=== PATIENT | female | born 1940 | race Native Hawaiian/Other Pacific Islander ===

== ENCOUNTER 2016-12-20 11:20 | Inpatient (IN) | payer MEDICARE, OTHER ==
[2016-12-20 11:36] VITALS: BMI 23.6
--- NOTE | 2016-12-20 12:15 | C.PDOC ---
History Of Present Illness 76 year old female, whose PMHx includes Peptic Ulcer Disease with GI bleeding, Atrial Fibrillation not on warfarin, HTN and Chronic Kidney Disease (stage 3) presents to the ED for evaluation after she noted black stool while having a bowel movement this morning. Patient also reports that she has been experiencing intermittent episodes of epigastric pain for the past 5 days. States has had endoscopy 3 times before. Patient reports she underwent cardiac catheterization in 2015 and a stress test which was within normal limits. She denies fever, chills, chest pain, shortness of breath, lightheadedness at this time. Patient states she is visiting her son for months from [place] and does not have a PMD in [place]. Time Seen by Provider: 12/20/16 11:52 Chief Complaint (Nursing): GI Problem History Per: Patient History/Exam Limitations: no limitations Onset/Duration Of Symptoms: Hrs, Intermittent Episodes Current Symptoms Are (Timing): Still Present Number Of Bleeding Episodes: One Quality Of Discomfort: "Pain" Associated Symptoms: Melena. denies: Lightheadedness Additional History Per: Patient Past Medical History Reviewed: Historical Data, Nursing Documentation, Vital Signs Vital Signs: Last Vital Signs Temp 97.7 F 12/20/16 11:36 Pulse 87 12/20/16 11:36 Resp 18 12/20/16 11:36 BP 155/91 H 12/20/16 11:36 Pulse Ox 97 12/20/16 13:24 - Medical History PMH: Arthritis, Atrial Fibrillation (on herbal med), Gastrointestinal Ulcer ( peptic ulcer), HTN Surgical History: Endoscopy Family History: States: Unknown Family Hx - Social History Hx Alcohol Use: No Hx Substance Use: No - Immunization History Hx Tetanus Toxoid Vaccination: No Hx Influenza Vaccination: Yes Hx Pneumococcal Vaccination: Yes Review Of Systems Except As Marked, All Systems Reviewed And Found Negative. Constitutional: Negative for: Fever Cardiovascular: Negative for: Chest Pain Physical Exam - Physical Exam Additional Physical Exam Comments: Constitutional: No acute distress. Head: Normocephalic. Atraumatic. Eyes: PERRL. ENT: Moist mucous membranes. Neck: Supple. Cardiovascular: Regular rate. Irregular Rhythm. Radial pulse 2+ bilaterally. Chest: No tenderness. Respiratory: Clear to auscultation bilaterally. GI: Soft. Nontender. Nondistended. Rectal: No mass. No hemorrhoids. Melena noted. Back: No CVA tenderness. Musculoskeletal: Mild pitting edema to bilateral lower extremities. No tenderness. Capillary refill is less than 2 seconds. Skin: No rash. Neurologic: Alert, no focal deficit. ED Course And Treatment - Laboratory Results Result Diagrams: 12/20/16 12:40 12/20/16 12:40 O2 Sat by Pulse Oximetry: 97 (on RA) Pulse Ox Interpretation: Normal Medical Decision Making Medical Decision Making: Impression: 76y/o female c/o black stool Plan: * Bloodwork * UA * EKG * CXR * Protonix IVP * reassess and disposition Progress: Bloodwork, urinalysis, EKG, CXR ordered and reviewed. Protonix IVP administered. Elderly patient with melena, elevated BUN. Will admit to hospitalist service for further evaluation and treatment. Dr. Randle accepts. Disposition Discussed With Dr.: Michael Randle Doctor Will See Patient In The: Hospital - Disposition Disposition: HOSPITALIZED Disposition Time: 13:26 Condition: FAIR Forms: [facility] (Portuguese) - Clinical Impression Clinical Impression: Upper GI bleed - Scribe Statement The provider has reviewed the documentation as recorded by the Scribe (Jessica Randle) Provider Attestation: All medical record entries made by the Scribe were at my direction and personally dictated by me. I have reviewed the chart and agree that the record accurately reflects my personal performance of the history, physical exam, medical decision making, and the department course for this patient. I have also personally directed, reviewed, and agree with the discharge instructions and disposition.
[2016-12-20 12:44] LABS: BASO # 0.1 K/uL (0.0-0.2); BASO % 0.9 % (0.0-2.0); EOS # 0.3 K/uL (0.0-0.7); EOS % 4.6 % (0.0-4.0); HEMATOCRIT 39.9 % (34.0-47.0); LYMPH # 1.2 K/uL (1.0-4.3); LYMPH % 21.4 % (20.0-40.0); MEAN CELL VOLUME 94.6 fL (81.0-99.0); MEAN CORPUSCULAR HEMOGLOBIN 32.5 pg (27.0-31.0); MEAN CORPUSCULAR HGB CONC 34.3 g/dL (33.0-37.0); MEAN PLATELET VOLUME 10.5 fL (7.2-11.7); MONO # 0.7 K/uL (0.0-0.8); MONO % 12.6 % (0.0-10.0); NRBC % 0.2 % (0.0-2.0); WHITE BLOOD COUNT 5.6 K/uL (4.8-10.8)
[2016-12-20] MEDS ORDERED: Sodium Chloride 0.9% 50 ML IV ONE (12:52)
[2016-12-20 12:53] LABS: CHLORIDE 102 mmol/L (98-107); SODIUM 137 mmol/L (132-148)
[2016-12-20 12:54] LABS: RBC URINE 1 /hpf (0-3); URINE BILIRUBIN NEGATIVE (NEGATIVE); URINE BLOOD NEGATIVE (NEGATIVE); URINE COLOR Yellow (YELLOW); URINE GLUCOSE (UA) NORMAL (Normal); URINE KETONE NEGATIVE (NEGATIVE); URINE LEUKOCYTE ESTERASE NEG Leu/uL (Negative); URINE PROTEIN NEGATIVE (NEGATIVE); URINE UROBILINOGEN NORMAL mg/dL (0.2-1.0); WBC URINE 1 /hpf (0-5)
[2016-12-20 12:55] LABS: ALB/GLOB RATIO 1.4 (1.0-2.1); ALKALINE PHOSPHATASE 62 U/L (38-126); AST/SGOT 32 U/L (14-36); BILIRUBIN,TOTAL 0.8 mg/dL (0.2-1.3); CARBON DIOXIDE 26 mmol/L (22-30); GFR AFRICAN-AMERICAN > 60; TOTAL PROTEIN 7.1 g/dL (6.3-8.3)
[2016-12-20 12:56] LABS: ALT/SGPT 35 U/L (9-52); BLOOD UREA NITROGEN 26 mg/dL (7-17); CALCIUM 9.6 mg/dl (8.6-10.4); GLUCOSE,RANDOM 81 mg/dL (65-105)
--- NOTE | 2016-12-20 14:31 | RAD ---
HISTORY: GI bleed COMPARISON: No prior. FINDINGS: LUNGS: Poor inspiration with low lung volumes, crowded bronchovascular markings and mild bibasilar atelectasis. PLEURA: No significant pleural effusion identified, no pneumothorax apparent. CARDIOVASCULAR: Heart is borderline/mildly enlarged. OSSEOUS STRUCTURES: No significant abnormalities. VISUALIZED UPPER ABDOMEN: Normal. OTHER FINDINGS: None. IMPRESSION: Poor inspiration with low lung volumes, crowded bronchovascular markings and mild bibasilar atelectasis.
--- NOTE | 2016-12-20 15:31 | CP.PCM.HP ---
History of Present Illness - History of Present Illness History of Present Illness: CC: "black stool" 76 year old female with PMHx of CHF, HTN, PUD with bleeds, A. fib, pulmonary HTN , CKD, overactive bladder presents to the ED after one episode of black stool this AM. She lives in [place] and is here visiting her son. Patient reports she has had some mild, intermittent abdominal pain over the past 3 days. Pain was associated with spicy foods. She was having yellow non bloody stools until this AM when she had a black BM. Patient admits to history of CHF. States she cannot lie flat and that she has JOSEPH at baseline. She sees logistics solution manager Dr. Tuttle when she is here in [place]. She has history of bleeding ulcer in 2012. She has had multiple EGDs, some in [place], another in [facility]. Last EGD was done in [facility] in 2014 and showed an ulcer. For this reason patient has refused to be on anticoagulation for her A.Fib. Patient also used to take PPI, but states she stopped because it gave her CKD. Patient admits to overactive bladder, but does not take Myrbetriq prescribed long ago due to worsening of HTN. She admits to feeling fatigued. Denies chest pain, SOB, fevers, chills, nausea, vomiting, headache. Admits to occasional dizziness when she gets up too fast. PMHx: CHF, Pulmonary HTN, PUD with bleeds, A. fib, CKD, overactive bladder. Medications: Lasix 20 mg PO daily, Atenelol 25 mg PO daily, Pravastatin 40 mg PO daily, supplements (turmeric, garlic, Co-Q 10, [place]) Allergies: NKDA Surgeries: cataract, TKR (left), right index surgery, left toe bunion Social Hx: denies tobacco, alcohol, drug use. PMD: in [place] Cardio: Dr. Tuttle. Present on Admission - Present on Admission Any Indicators Present on Admission: No Review of Systems - Constitutional Constitutional: absent: Chills, Fatigue, Fever - EENT Eyes: absent: Blurred Vision, Change in Vision - Cardiovascular Cardiovascular: absent: Chest Pain, Dyspnea, Leg Edema, Palpitations - Respiratory Respiratory: absent: Cough, Dyspnea - Gastrointestinal Gastrointestinal: Abdominal Pain, Melena. absent: Bloating, Constipation, Cramping, Diarrhea, Hematochezia, Loose Stools, Nausea, Vomiting - Genitourinary Genitourinary: Voiding Freq/Small Amts. absent: Difficulty Urinating, Dysuria - Musculoskeletal Musculoskeletal: absent: Numbness, Tingling - Integumentary Integumentary: Swelling. absent: Dry Skin, Skin Pain, Wounds - Neurological Neurological: Dizziness. absent: Convulsions, Numbness, Frequent Falls, Syncope , Tingling, Tremor, Weakness - Psychiatric Psychiatric: absent: Anxiety, Depression - Endocrine Endocrine: Fatigue. absent: Palpitations - Hematologic/Lymphatic Hematologic: absent: Easy Bleeding, Easy Bruising Past Patient History - Past Social History Smoking Status: Never Smoked - CARDIAC Hx Atrial Fibrillation: Yes (on herbal med) Hx Hypertension: Yes - MUSCULOSKELETAL/RHEUMATOLOGICAL Hx Arthritis: Yes - GASTROINTESTINAL Hx Gastrointestinal Disorders: Yes - PSYCHIATRIC Hx Substance Use: No - SURGICAL HISTORY Hx Surgeries: Yes Hx Eye Surgery: Yes (cataract) Hx Orthopedic Surgery: Yes (left knee, left bunion, laminectomy) Meds Allergies/Adverse Reactions: Allergies Allergy/AdvReac Type Severity Reaction Status Date / Time No Known Allergies Allergy Verified 12/20/16 11:36 Physical Exam - Constitutional Appears: No Acute Distress - Head Exam Head Exam: NORMAL INSPECTION, NORMOCEPHALIC - Eye Exam Eye Exam: EOMI, Normal appearance - ENT Exam ENT Exam: Mucous Membranes Moist - Neck Exam Neck exam: Positive for: Full Rom, Normal Inspection - Respiratory Exam Respiratory Exam: Clear to Auscultation Bilateral, NORMAL BREATHING PATTERN - Cardiovascular Exam Cardiovascular Exam: Irregular Rhythm, +S1, +S2 - GI/Abdominal Exam GI & Abdominal Exam: absent: Normal Bowel Sounds, Soft, Tenderness - Extremities Exam Extremities exam: Positive for: full ROM, pedal edema. Negative for: pedal pulses present - Neurological Exam Neurological exam: Alert, Oriented x3 - Psychiatric Exam Psychiatric exam: Normal Affect, Normal Mood - Skin Skin Exam: Dry, Normal Color, Warm Results - Vital Signs Recent Vital Signs: Last Vital Signs Temp 97.7 F 12/20/16 11:36 Pulse 87 12/20/16 11:36 Resp 18 12/20/16 11:36 BP 155/91 H 12/20/16 11:36 Pulse Ox 97 12/20/16 13:26 - Labs Result Diagrams: 12/20/16 12:40 12/20/16 12:40 Labs: Laboratory Results - last 24 hr 12/20/16 12/20/16 12/20/16 12:40 12:40 12:40 WBC 5.6 RBC 4.22 Hgb 13.7 Hct 39.9 MCV 94.6 MCH 32.5 H MCHC 34.3 RDW 13.0 Plt Count 164 MPV 10.5 Neut % (Auto) 60.5 Lymph % (Auto) 21.4 [place] % (Auto) 12.6 H Eos % (Auto) 4.6 H Baso % (Auto) 0.9 Neut # 3.4 Lymph # 1.2 [place] # 0.7 Eos # 0.3 Baso # 0.1 PT INR APTT Sodium 137 Potassium 4.0 Chloride 102 Carbon Dioxide 26 Anion Gap 13 BUN 26 H Creatinine 0.9 Est GFR ( Amer) > 60 Est GFR (Non-Af Amer) > 60 Random Glucose 81 Calcium 9.6 Total Bilirubin 0.8 AST 32 ALT 35 Alkaline Phosphatase 62 Troponin I < 0.0120 Total Protein 7.1 Albumin 4.1 Globulin 3.0 Albumin/Globulin Ratio 1.4 Lipase 220 Urine Color Urine Clarity Urine pH Ur Specific [place] Urine Protein Urine Glucose (UA) Urine Ketones Urine Blood Urine Nitrate Urine Bilirubin Urine Urobilinogen Ur Leukocyte Esterase Urine WBC (Auto) Urine RBC (Auto) Stool Occult Blood Positive H Blood Type Antibody Screen 12/20/16 12/20/16 12/20/16 12:40 12:49 13:39 WBC RBC Hgb Hct MCV MCH MCHC RDW Plt Count MPV Neut % (Auto) Lymph % (Auto) [place] % (Auto) Eos % (Auto) Baso % (Auto) Neut # Lymph # [place] # Eos # Baso # PT 11.1 INR 1.0 APTT 31 Sodium Potassium Chloride Carbon Dioxide Anion Gap BUN Creatinine Est GFR ( Amer) Est GFR (Non-Af Amer) Random Glucose Calcium Total Bilirubin AST ALT Alkaline Phosphatase Troponin I Total Protein Albumin Globulin Albumin/Globulin Ratio Lipase Urine Color Yellow Urine Clarity Clear Urine pH 5.0 Ur Specific [place] 1.010 Urine Protein Negative Urine Glucose (UA) Normal Urine Ketones Negative Urine Blood Negative Urine Nitrate Negative Urine Bilirubin Negative Urine Urobilinogen Normal Ur Leukocyte Esterase Neg Urine WBC (Auto) 1 Urine RBC (Auto) 1 Stool Occult Blood Blood Type O POSITIVE Antibody Screen Negative Assessment & Plan (1) Upper GI bleed Assessment and Plan: Admit to Tele. GI consult placed- Dr. Han- help appreciated Patient with positive stool OB and melena. Type and screen BP and H/H stable for now Will keep NPO Start Protonix 40 mg IVP Q12H f/u CBC in the AM f/u GI recs Status: Acute (2) History of peptic ulcer disease Assessment and Plan: Patient reports most recent EGD in 2014 at [facility] showed ulcer. Start Protonix 40 mg IVP Q12H Status: Acute (3) Atrial fibrillation Assessment and Plan: Patient refuses anticoagulation due to history of GI bleed. EKG on admission showed Irregular rhythm at 77 bpm. Status: Acute (4) HTN (hypertension) Assessment and Plan: resume home med: Lasix 20 mg PO daily Atenolol 25 mg PO daily monitor Status: Acute (5) CHF (congestive heart failure) Assessment and Plan: Patient reports most recent ECHO shows pulmonary HTN and heart failure. Patient follows with Dr. Tuttle when she is in [place]. f/u 2D ECHO Continue home meds: Lasix 20 mg PO daily Atenelol 25 mg Po daily Patient not on ACEi or ARB, likely 2/2 to history of CKD. However GFR >60. Status: Acute (6) CKD (chronic kidney disease) stage 3, GFR 30-59 ml/min Assessment and Plan: GFR >60. Status: Acute (7) Prophylactic measure Assessment and Plan: Protonix 40 IVP SC Q12H Chemical anticogulation contraindicated SCDs contranindicated Status: Acute
[2016-12-20] MEDS ORDERED: Dextrose 5%/0.45% NS 1,000 ML IV SCH (19:30)
--- NOTE | 2016-12-20 21:19 | CP.PCM.CON ---
History of Present Illness - History of Present Illness History of Present Illness: Reason For Consultation: Cardiac evaluation HPI: 76 year old female with PMHx of CHF, HTN, PUD with bleeds, A. fib, pulmonary HTN, CKD, overactive bladder presents to the ED after one episode of black stool this AM. She lives in [place] and is here visiting her son. Patient reports she has had some mild, intermittent abdominal pain over the past 3 days. Pain was associated with spicy foods. She was having yellow non bloody stools until this AM when she had a black BM. Patient admits to history of CHF. States she cannot lie flat and that she has JOSEPH at baseline. She sees community arts centre manager Dr. Tuttle when she is here in [place]. She has history of bleeding ulcer in 2012. She has had multiple EGDs, some in [place], another in [facility]. Last EGD was done in [facility] in 2014 and showed an ulcer. For this reason patient has refused to be on anticoagulation for her A.Fib. Patient also used to take PPI, but states she stopped because it gave her CKD. Patient admits to overactive bladder, but does not take Myrbetriq prescribed long ago due to worsening of HTN. She admits to feeling fatigued. Denies chest pain, SOB, fevers, chills, nausea, vomiting, headache. Admits to occasional dizziness when she gets up too fast. PMHx: Diastolic CHF, Pulmonary HTN, PUD with bleeds, A. fib, CKD, overactive bladder. Medications: Lasix 20 mg PO daily, Atenelol 25 mg PO daily, Pravastatin 40 mg PO daily, supplements (turmeric, garlic, Co-Q 10, [place]) Allergies: NKDA Surgeries: cataract, TKR (left), right index surgery, left toe bunion Social Hx: denies tobacco, alcohol, drug use. PMD: in [place] Present on Admission - Present on Admission Any Indicators Present on Admission: No Review of Systems - Constitutional Constitutional: absent: Chills, Fatigue, Fever - EENT Eyes: absent: Blurred Vision, Change in Vision - Cardiovascular Cardiovascular: absent: Chest Pain, Dyspnea, Leg Edema, Palpitations - Respiratory Respiratory: absent: Cough, Dyspnea - Gastrointestinal Gastrointestinal: Abdominal Pain, Melena. absent: Bloating, Constipation, Cramping, Diarrhea, Hematochezia, Loose Stools, Nausea, Vomiting - Genitourinary Genitourinary: Voiding Freq/Small Amts. absent: Difficulty Urinating, Dysuria - Musculoskeletal Musculoskeletal: absent: Numbness, Tingling - Integumentary Integumentary: Swelling. absent: Dry Skin, Skin Pain, Wounds - Neurological Neurological: Dizziness. absent: Convulsions, Numbness, Frequent Falls, Syncope , Tingling, Tremor, Weakness - Psychiatric Psychiatric: absent: Anxiety, Depression - Endocrine Endocrine: Fatigue. absent: Palpitations - Hematologic/Lymphatic Hematologic: absent: Easy Bleeding, Easy Bruising Past Patient History - Past Social History Smoking Status: Never Smoked - CARDIAC Hx Atrial Fibrillation: Yes (on herbal med) Hx Hypertension: Yes - MUSCULOSKELETAL/RHEUMATOLOGICAL Hx Arthritis: Yes - GASTROINTESTINAL Hx Gastrointestinal Disorders: Yes - PSYCHIATRIC Hx Substance Use: No - SURGICAL HISTORY Hx Surgeries: Yes Hx Eye Surgery: Yes (cataract) Hx Orthopedic Surgery: Yes (left knee, left bunion, laminectomy) Meds Allergies/Adverse Reactions: Allergies Allergy/AdvReac Type Severity Reaction Status Date / Time No Known Allergies Allergy Verified 12/20/16 11:36 Physical Exam - Constitutional Appears: No Acute Distress - Head Exam Head Exam: NORMAL INSPECTION, NORMOCEPHALIC - Eye Exam Eye Exam: EOMI, Normal appearance - ENT Exam ENT Exam: Mucous Membranes Moist - Neck Exam Neck exam: Positive for: Full Rom, Normal Inspection - Respiratory Exam Respiratory Exam: Clear to Auscultation Bilateral, NORMAL BREATHING PATTERN - Cardiovascular Exam Cardiovascular Exam: Irregular Rhythm, +S1, +S2 - GI/Abdominal Exam GI & Abdominal Exam: absent: Normal Bowel Sounds, Soft, Tenderness - Extremities Exam Extremities exam: Positive for: full ROM, pedal edema. Negative for: pedal pulses present - Neurological Exam Neurological exam: Alert, Oriented x3 - Psychiatric Exam Psychiatric exam: Normal Affect, Normal Mood - Skin Skin Exam: Dry, Normal Color, Warm Past Patient History - Past Medical History & Family History Past Medical History?: Yes - Past Social History Smoking Status: Never Smoked - CARDIAC Hx Atrial Fibrillation: Yes (on herbal med) Hx Hypertension: Yes - PULMONARY Hx Respiratory Disorders: No - NEUROLOGICAL Hx Neurological Disorder: No - HEENT Hx HEENT Problems: No - RENAL Hx Chronic Kidney Disease: No - ENDOCRINE/METABOLIC Hx Endocrine Disorders: No - HEMATOLOGICAL/ONCOLOGICAL Hx Blood Disorders: No - INTEGUMENTARY Hx Dermatological Problems: No - MUSCULOSKELETAL/RHEUMATOLOGICAL Hx Arthritis: Yes - GASTROINTESTINAL Hx Gastrointestinal Disorders: Yes - GENITOURINARY/GYNECOLOGICAL Hx Genitourinary Disorders: No - PSYCHIATRIC Hx Substance Use: No - SURGICAL HISTORY Hx Surgeries: Yes Hx Eye Surgery: Yes (cataract) Hx Orthopedic Surgery: Yes (left knee, left bunion, laminectomy) - ANESTHESIA Hx Anesthesia: Yes Hx Anesthesia Reactions: No Hx Malignant Hyperthermia: No Has any member of the family had a problem w/ anesthesia?: No Meds Allergies/Adverse Reactions: Allergies Allergy/AdvReac Type Severity Reaction Status Date / Time No Known Allergies Allergy Verified 12/20/16 11:36 - Medications Medications: Current Medications Atenolol (Tenormin) 25 mg PO DAILY LIZABETH Furosemide (Lasix) 20 mg PO DAILY [facility] Dextrose/Sodium Chloride (Dextrose 5%/0.45% Ns 1000 Ml) 1,000 mls @ 60 mls/hr IV .[id number] LIZABETH Stop: 12/21/16 12:09 Last Admin: 12/20/16 20:16 Dose: 60 mls/hr Pantoprazole Sodium (Protonix Inj) 40 mg IVP Q12H LIZABETH Pneumococcal Polyvalent Vaccine (Pneumovax 23 Vaccine) 0.5 ml IM .ONCE ONE Stop: 12/23/16 10:01 Rosuvastatin Calcium (Crestor) 5 mg PO HS [facility] Results - Vital Signs Recent Vital Signs: Last Vital Signs Temp 97.7 F 12/20/16 16:45 Pulse 72 12/20/16 16:45 Resp 18 12/20/16 16:45 BP 131/79 12/20/16 16:45 Pulse Ox 96 12/20/16 16:45 - Labs Result Diagrams: 12/20/16 12:40 12/20/16 12:40 Labs: Laboratory Results - last 24 hr 12/20/16 12/20/16 12/20/16 12:40 12:40 12:40 WBC 5.6 RBC 4.22 Hgb 13.7 Hct 39.9 MCV 94.6 MCH 32.5 H MCHC 34.3 RDW 13.0 Plt Count 164 MPV 10.5 Neut % (Auto) 60.5 Lymph % (Auto) 21.4 [place] % (Auto) 12.6 H Eos % (Auto) 4.6 H Baso % (Auto) 0.9 Neut # 3.4 Lymph # 1.2 [place] # 0.7 Eos # 0.3 Baso # 0.1 PT INR APTT Sodium 137 Potassium 4.0 Chloride 102 Carbon Dioxide 26 Anion Gap 13 BUN 26 H Creatinine 0.9 Est GFR ( Amer) > 60 Est GFR (Non-Af Amer) > 60 Random Glucose 81 Calcium 9.6 Total Bilirubin 0.8 AST 32 ALT 35 Alkaline Phosphatase 62 Troponin I < 0.0120 Total Protein 7.1 Albumin 4.1 Globulin 3.0 Albumin/Globulin Ratio 1.4 Lipase 220 Urine Color Urine Clarity Urine pH Ur Specific [place] Urine Protein Urine Glucose (UA) Urine Ketones Urine Blood Urine Nitrate Urine Bilirubin Urine Urobilinogen Ur Leukocyte Esterase Urine WBC (Auto) Urine RBC (Auto) Stool Occult Blood Positive H Blood Type Antibody Screen 12/20/16 12/20/16 12/20/16 12:40 12:49 13:39 WBC RBC Hgb Hct MCV MCH MCHC RDW Plt Count MPV Neut % (Auto) Lymph % (Auto) [place] % (Auto) Eos % (Auto) Baso % (Auto) Neut # Lymph # [place] # Eos # Baso # PT 11.1 INR 1.0 APTT 31 Sodium Potassium Chloride Carbon Dioxide Anion Gap BUN Creatinine Est GFR ( Amer) Est GFR (Non-Af Amer) Random Glucose Calcium Total Bilirubin AST ALT Alkaline Phosphatase Troponin I Total Protein Albumin Globulin Albumin/Globulin Ratio Lipase Urine Color Yellow Urine Clarity Clear Urine pH 5.0 Ur Specific [place] 1.010 Urine Protein Negative Urine Glucose (UA) Normal Urine Ketones Negative Urine Blood Negative Urine Nitrate Negative Urine Bilirubin Negative Urine Urobilinogen Normal Ur Leukocyte Esterase Neg Urine WBC (Auto) 1 Urine RBC (Auto) 1 Stool Occult Blood Blood Type O POSITIVE Antibody Screen Negative Assessment & Plan - Assessment and Plan (Free Text) Assessment: 76 F HTN controlled A Fib: Rate controlled and not on anticoagulation due to hx of peptic ulcer Cardiac Cath 2015: Non Obstructive Coronaries ECHO 2015: Normal EF and mild This patient assessed as low risk for cardiac events for Endo/Colonoscopy under conscious sedation
[2016-12-21 07:15] LABS: BASO % 0.9 % (0.0-2.0); EOS # 0.2 K/uL (0.0-0.7); EOS % 6.1 % (0.0-4.0); HEMATOCRIT 37.3 % (34.0-47.0); LYMPH % 25.5 % (20.0-40.0); MEAN CELL VOLUME 95.5 fL (81.0-99.0); MEAN CORPUSCULAR HEMOGLOBIN 32.7 pg (27.0-31.0); MEAN CORPUSCULAR HGB CONC 34.2 g/dL (33.0-37.0); MEAN PLATELET VOLUME 10.5 fL (7.2-11.7); MONO # 0.5 K/uL (0.0-0.8); MONO % 12.6 % (0.0-10.0); NRBC % 0.1 % (0.0-2.0); RED CELL DISTRIBUTION WIDTH 12.7 % (11.5-14.5); WHITE BLOOD COUNT 3.8 K/uL (4.8-10.8)
[2016-12-21 07:36] LABS: CHLORIDE 102 mmol/L (98-107); POTASSIUM 4.1 mmol/L (3.6-5.2); SODIUM 138 mmol/L (132-148)
[2016-12-21 07:38] LABS: BILIRUBIN,TOTAL 0.9 mg/dL (0.2-1.3); GFR AFRICAN-AMERICAN > 60
[2016-12-21 07:39] LABS: ALB/GLOB RATIO 1.4 (1.0-2.1); ALKALINE PHOSPHATASE 53 U/L (38-126); ALT/SGPT 33 U/L (9-52); AST/SGOT 28 U/L (14-36); BLOOD UREA NITROGEN 20 mg/dL (7-17); CARBON DIOXIDE 28 mmol/L (22-30); GLUCOSE,RANDOM 89 mg/dL (65-105); TOTAL PROTEIN 6.3 g/dL (6.3-8.3)
[2016-12-21 07:40] LABS: CALCIUM 8.6 mg/dl (8.6-10.4)
--- NOTE | 2016-12-21 08:30 | CP.PCM.CON ---
<Torie Dawn - Last Filed: 12/21/16 10:39> History of Present Illness - History of Present Illness History of Present Illness: Gastroenterology Fellow/PGY5 Consult Note 76 year old female with history of Hypertension, CKD, Atrial fibrillation, Upper GI bleed 2/2 PUD 2010 presenting with epigastric pain and black stool. Patient notes having epigastric pain for the last three to five days. She endorses having a formed black stool yesterday morning after eating breakfast leading to ER presentation. Denies lightheadedness, dizziness, nausea, vomiting , hematemesis, diarrhea, constipation, hematochezia, unintentional weight loss. Notes leg swelling. Prior daily PPI use from [id number] with [id number] as needed for heartburn for the last two years. She has used nattokinase 25mg BID OTC for Afib since 2015 and believes she accidentally took a higher dose of 100mg pill for the last one to days. Admits to daily baby aspirin for the last tenty years. She refused anticoagulation in the past due to history of persistent PUD on last EGD 12/2014 in [facility] showing a antral lesser curvature clean based ulcer. Prior colonoscopy 2009 endorsed to be normal. Family- Father- colon cancer diagnosed at 60 years of age Social- denies tobacco, alcohol, illicit drug use; visiting from [place] Surgery- L5-S1 laminectomy, left toe bunion, left total knee replacement, cataract removal Review of Systems - Review of Systems Review of Systems: 12-point review of systems negative except for as above Past Patient History - Past Medical History & Family History Past Medical History?: Yes - Past Social History Smoking Status: Never Smoked - CARDIAC Hx Atrial Fibrillation: Yes (on herbal med) Hx Hypertension: Yes - PULMONARY Hx Respiratory Disorders: No - NEUROLOGICAL Hx Neurological Disorder: No - HEENT Hx HEENT Problems: No - RENAL Hx Chronic Kidney Disease: No - ENDOCRINE/METABOLIC Hx Endocrine Disorders: No - HEMATOLOGICAL/ONCOLOGICAL Hx Blood Disorders: No - INTEGUMENTARY Hx Dermatological Problems: No - MUSCULOSKELETAL/RHEUMATOLOGICAL Hx Arthritis: Yes - GASTROINTESTINAL Hx Gastrointestinal Disorders: Yes - GENITOURINARY/GYNECOLOGICAL Hx Genitourinary Disorders: No - PSYCHIATRIC Hx Substance Use: No - SURGICAL HISTORY Hx Surgeries: Yes Hx Eye Surgery: Yes (cataract) Hx Orthopedic Surgery: Yes (left knee, left bunion, laminectomy) - ANESTHESIA Hx Anesthesia: Yes Hx Anesthesia Reactions: No Hx Malignant Hyperthermia: No Has any member of the family had a problem w/ anesthesia?: No Meds Allergies/Adverse Reactions: Allergies Allergy/AdvReac Type Severity Reaction Status Date / Time No Known Allergies Allergy Verified 12/20/16 11:36 - Medications Medications: Current Medications Atenolol (Tenormin) 25 mg PO DAILY [facility] Furosemide (Lasix) 20 mg PO DAILY [facility] Dextrose/Sodium Chloride (Dextrose 5%/0.45% Ns 1000 Ml) 1,000 mls @ 60 mls/hr IV .[id number] [facility] Stop: 12/21/16 12:09 Last Admin: 12/20/16 20:16 Dose: 60 mls/hr Pantoprazole Sodium (Protonix Inj) 40 mg IVP Q12H [facility] Last Admin: 12/21/16 01:59 Dose: 40 mg Pneumococcal Polyvalent Vaccine (Pneumovax 23 Vaccine) 0.5 ml IM .ONCE ONE Stop: 12/23/16 10:01 Rosuvastatin Calcium (Crestor) 5 mg PO HS [facility] Last Admin: 12/20/16 21:25 Dose: 5 mg Physical Exam - Constitutional Appears: Non-toxic, No Acute Distress - Head Exam Head Exam: ATRAUMATIC, NORMOCEPHALIC - Eye Exam Eye Exam: EOMI, PERRL Pupil Exam: PERRL. absent: Miosis, Mydriatic - ENT Exam ENT Exam: Mucous Membranes Moist, Normal Oropharynx - Neck Exam Neck exam: Positive for: Full Rom, Normal Inspection - Respiratory Exam Respiratory Exam: Clear to Auscultation Bilateral. absent: Rales, Rhonchi, Wheezes - Cardiovascular Exam Cardiovascular Exam: RRR, +S1, +S2. absent: Gallop, Rubs - GI/Abdominal Exam GI & Abdominal Exam: Normal Bowel Sounds, Soft. absent: Distended, Firm, Guarding, Organomegaly, Rebound, Rigid, Tenderness - Rectal Exam Rectal Exam: absent: Black Stool, Bloody Stool Additional comments: brown stool - Extremities Exam Extremities exam: Positive for: pedal edema - Neurological Exam Neurological exam: Alert - Psychiatric Exam Psychiatric exam: Normal Affect, Normal Mood - Skin Skin Exam: Dry, Intact, Normal Color, Warm Results - Vital Signs Recent Vital Signs: Last Vital Signs Temp 97.2 F L 12/20/16 23:20 Pulse 67 12/20/16 23:20 Resp 20 10/22/17 23:20 BP 112/72 12/20/16 23:20 Pulse Ox 97 12/20/16 23:20 - Labs Result Diagrams: 12/21/16 07:04 12/21/16 07:04 Labs: Laboratory Results - last 24 hr 12/20/16 12/20/16 12/20/16 12:40 12:40 12:40 WBC 5.6 RBC 4.22 Hgb 13.7 Hct 39.9 MCV 94.6 MCH 32.5 H MCHC 34.3 RDW 13.0 Plt Count 164 MPV 10.5 Neut % (Auto) 60.5 Lymph % (Auto) 21.4 Gem % (Auto) 12.6 H Eos % (Auto) 4.6 H Baso % (Auto) 0.9 Neut # 3.4 Lymph # 1.2 Gem # 0.7 Eos # 0.3 Baso # 0.1 PT INR APTT Sodium 137 Potassium 4.0 Chloride 102 Carbon Dioxide 26 Anion Gap 13 BUN 26 H Creatinine 0.9 Est GFR ( Amer) > 60 Est GFR (Non-Af Amer) > 60 Random Glucose 81 Calcium 9.6 Total Bilirubin 0.8 AST 32 ALT 35 Alkaline Phosphatase 62 Troponin I < 0.0120 Total Protein 7.1 Albumin 4.1 Globulin 3.0 Albumin/Globulin Ratio 1.4 Lipase 220 Urine Color Urine Clarity Urine pH Ur Specific [place] Urine Protein Urine Glucose (UA) Urine Ketones Urine Blood Urine Nitrate Urine Bilirubin Urine Urobilinogen Ur Leukocyte Esterase Urine WBC (Auto) Urine RBC (Auto) Stool Occult Blood Positive H Blood Type Antibody Screen 12/20/16 12/20/16 12/20/16 12:40 12:49 13:39 WBC RBC Hgb Hct MCV MCH MCHC RDW Plt Count MPV Neut % (Auto) Lymph % (Auto) Gem % (Auto) Eos % (Auto) Baso % (Auto) Neut # Lymph # Gem # Eos # Baso # PT 11.1 INR 1.0 APTT 31 Sodium Potassium Chloride Carbon Dioxide Anion Gap BUN Creatinine Est GFR ( Amer) Est GFR (Non-Af Amer) Random Glucose Calcium Total Bilirubin AST ALT Alkaline Phosphatase Troponin I Total Protein Albumin Globulin Albumin/Globulin Ratio Lipase Urine Color Yellow Urine Clarity Clear Urine pH 5.0 Ur Specific [place] 1.010 Urine Protein Negative Urine Glucose (UA) Normal Urine Ketones Negative Urine Blood Negative Urine Nitrate Negative Urine Bilirubin Negative Urine Urobilinogen Normal Ur Leukocyte Esterase Neg Urine WBC (Auto) 1 Urine RBC (Auto) 1 Stool Occult Blood Blood Type O POSITIVE Antibody Screen Negative 12/21/16 12/21/16 12/21/16 07:04 07:04 07:04 WBC 3.8 L RBC 3.91 Hgb 12.8 Hct 37.3 MCV 95.5 MCH 32.7 H MCHC 34.2 RDW 12.7 Plt Count 151 MPV 10.5 Neut % (Auto) 54.9 Lymph % (Auto) 25.5 Gem % (Auto) 12.6 H Eos % (Auto) 6.1 H Baso % (Auto) 0.9 Neut # 2.1 Lymph # 1.0 Gem # 0.5 Eos # 0.2 Baso # 0.0 PT 11.3 INR 1.0 APTT 34 Sodium 138 Potassium 4.1 Chloride 102 Carbon Dioxide 28 Anion Gap 12 BUN 20 H Creatinine 1.0 Est GFR ( Amer) > 60 Est GFR (Non-Af Amer) 54 Random Glucose 89 Calcium 8.6 Total Bilirubin 0.9 AST 28 ALT 33 Alkaline Phosphatase 53 Troponin I Total Protein 6.3 Albumin 3.7 Globulin 2.7 Albumin/Globulin Ratio 1.4 Lipase Urine Color Urine Clarity Urine pH Ur Specific [place] Urine Protein Urine Glucose (UA) Urine Ketones Urine Blood Urine Nitrate Urine Bilirubin Urine Urobilinogen Ur Leukocyte Esterase Urine WBC (Auto) Urine RBC (Auto) Stool Occult Blood Blood Type Antibody Screen Assessment & Plan - Assessment and Plan (Free Text) Assessment: 76 year old female with history of Hypertension, CKD, Atrial fibrillation, Upper GI bleed 2/2 PUD 2010 presenting with epigastric pain and endorsed black stool after accidental increased dose of nattokinase OTC for Afib. Active treatment of epigastric pain with documented melena on ER presentation with concern for Upper GI bleed. Last EGD 2014 in [facility] showing a antral lesser curvature clean based ulcer. Prior colonoscopy 2009 endorsed to be normal. Plan: >H/H stable >cardiology managing- clearance provided to proceed with endoscopic evaluation >NPO >EGD today >continue PPI BID >further recommendations after endoscopic evaluation <Jaya Cooper MD - Last Filed: 12/21/16 12:30> Meds - Medications Medications: Current Medications Atenolol (Tenormin) 25 mg PO DAILY [facility] Last Admin: 12/21/16 10:08 Dose: 25 mg Furosemide (Lasix) 20 mg PO DAILY [facility] Last Admin: 12/21/16 10:16 Dose: Not Given Ceftriaxone Sodium 1 gm/ (Sodium Chloride) 100 mls @ 100 mls/hr IVPB DAILY [facility] Pantoprazole Sodium (Protonix Inj) 40 mg IVP Q12H [facility] Last Admin: 12/21/16 01:59 Dose: 40 mg Pneumococcal Polyvalent Vaccine (Pneumovax 23 Vaccine) 0.5 ml IM .ONCE ONE Stop: 12/23/16 10:01 Rosuvastatin Calcium (Crestor) 5 mg PO HS [facility] Last Admin: 12/20/16 21:25 Dose: 5 mg Saccharomyces Boulardii (Florastor) 250 mg PO BID [facility] Results - Vital Signs Recent Vital Signs: Last Vital Signs Temp 97.1 F L 12/21/16 11:17 Pulse 65 12/21/16 12:02 Resp 18 12/21/16 12:02 BP 119/71 12/21/16 12:02 Pulse Ox 100 12/21/16 12:02 - Labs Result Diagrams: 12/21/16 07:04 12/21/16 07:04 Labs: Laboratory Results - last 24 hr 12/20/16 12/20/16 12/20/16 12:40 12:40 12:40 WBC 5.6 RBC 4.22 Hgb 13.7 Hct 39.9 MCV 94.6 MCH 32.5 H MCHC 34.3 RDW 13.0 Plt Count 164 MPV 10.5 Neut % (Auto) 60.5 Lymph % (Auto) 21.4 Gem % (Auto) 12.6 H Eos % (Auto) 4.6 H Baso % (Auto) 0.9 Neut # 3.4 Lymph # 1.2 Gem # 0.7 Eos # 0.3 Baso # 0.1 PT INR APTT Sodium 137 Potassium 4.0 Chloride 102 Carbon Dioxide 26 Anion Gap 13 BUN 26 H Creatinine 0.9 Est GFR ( Amer) > 60 Est GFR (Non-Af Amer) > 60 Random Glucose 81 Calcium 9.6 Total Bilirubin 0.8 AST 32 ALT 35 Alkaline Phosphatase 62 Troponin I < 0.0120 Total Protein 7.1 Albumin 4.1 Globulin 3.0 Albumin/Globulin Ratio 1.4 Lipase 220 Urine Color Urine Clarity Urine pH Ur Specific [place] Urine Protein Urine Glucose (UA) Urine Ketones Urine Blood Urine Nitrate Urine Bilirubin Urine Urobilinogen Ur Leukocyte Esterase Urine WBC (Auto) Urine RBC (Auto) Stool Occult Blood Positive H Blood Type Antibody Screen 12/20/16 12/20/16 12/20/16 12:40 12:49 13:39 WBC RBC Hgb Hct MCV MCH MCHC RDW Plt Count MPV Neut % (Auto) Lymph % (Auto) Gem % (Auto) Eos % (Auto) Baso % (Auto) Neut # Lymph # Gem # Eos # Baso # PT 11.1 INR 1.0 APTT 31 Sodium Potassium Chloride Carbon Dioxide Anion Gap BUN Creatinine Est GFR ( Amer) Est GFR (Non-Af Amer) Random Glucose Calcium Total Bilirubin AST ALT Alkaline Phosphatase Troponin I Total Protein Albumin Globulin Albumin/Globulin Ratio Lipase Urine Color Yellow Urine Clarity Clear Urine pH 5.0 Ur Specific [place] 1.010 Urine Protein Negative Urine Glucose (UA) Normal Urine Ketones Negative Urine Blood Negative Urine Nitrate Negative Urine Bilirubin Negative Urine Urobilinogen Normal Ur Leukocyte Esterase Neg Urine WBC (Auto) 1 Urine RBC (Auto) 1 Stool Occult Blood Blood Type O POSITIVE Antibody Screen Negative 12/21/16 12/21/16 12/21/16 07:04 07:04 07:04 WBC 3.8 L RBC 3.91 Hgb 12.8 Hct 37.3 MCV 95.5 MCH 32.7 H MCHC 34.2 RDW 12.7 Plt Count 151 MPV 10.5 Neut % (Auto) 54.9 Lymph % (Auto) 25.5 Gem % (Auto) 12.6 H Eos % (Auto) 6.1 H Baso % (Auto) 0.9 Neut # 2.1 Lymph # 1.0 Gem # 0.5 Eos # 0.2 Baso # 0.0 PT 11.3 INR 1.0 APTT 34 Sodium 138 Potassium 4.1 Chloride 102 Carbon Dioxide 28 Anion Gap 12 BUN 20 H Creatinine 1.0 Est GFR ( Amer) > 60 Est GFR (Non-Af Amer) 54 Random Glucose 89 Calcium 8.6 Total Bilirubin 0.9 AST 28 ALT 33 Alkaline Phosphatase 53 Troponin I Total Protein 6.3 Albumin 3.7 Globulin 2.7 Albumin/Globulin Ratio 1.4 Lipase Urine Color Urine Clarity Urine pH Ur Specific [place] Urine Protein Urine Glucose (UA) Urine Ketones Urine Blood Urine Nitrate Urine Bilirubin Urine Urobilinogen Ur Leukocyte Esterase Urine WBC (Auto) Urine RBC (Auto) Stool Occult Blood Blood Type Antibody Screen Attending/Attestation - Attestation I have personally seen and examined this patient.: Yes I have fully participated in the care of the patient.: Yes I have reviewed all pertinent clinical information: Yes Notes (Text): 12/21/16 12:25 Patient seen this morning with Gi fellow. This is a 76 year old female with history of Hypertension, CKD, Atrial fibrillation, UGIB 2/2 PUD 2010 presenting with epigastric pain and black stool after accidental increased dose of nattokinase OTC for Afib. Last EGD 2014 in [facility] showing an antral lesser curvature clean based ulcer. Prior colonoscopy 2009 endorsed to be normal. EGd today showed antral ulcer with multilobular mass. Biopsies taken. CTAP with Iv contrast to be ordered and PPI bid. Will benefit from outpatient EUS once biopsies are back. Clear liquid diet. Consider holding Natokinase
--- NOTE | 2016-12-21 09:30 | CP.PCM.PN ---
<Julio Rodriguez - Last Filed: 12/21/16 16:46> Subjective - Date & Time of Evaluation Date of Evaluation: 12/21/16 Time of Evaluation: 09:29 - Subjective Subjective: Surgery Progress Note for Dr. Randle HPI: Patient seen and examined at bedside. Doing well with no complaints at this time. Denies any SOB or chest pain. No blood in stool. No hematemesis. Objective - Vital Signs/Intake and Output Vital Signs (last 24 hours): Temp Pulse Resp BP Pulse Ox 97.6 F 75 20 135/74 95 12/21/16 07:30 12/21/16 07:57 12/21/16 07:30 12/21/16 07:30 12/21/16 07:30 Intake and Output: 12/21/16 12/21/16 06:59 18:59 Intake Total 390 Balance 390 - Medications Medications: Current Medications Atenolol (Tenormin) 25 mg PO DAILY [facility] Furosemide (Lasix) 20 mg PO DAILY [facility] Dextrose/Sodium Chloride (Dextrose 5%/0.45% Ns 1000 Ml) 1,000 mls @ 60 mls/hr IV .[id number] [facility] Stop: 12/21/16 12:09 Last Admin: 12/20/16 20:16 Dose: 60 mls/hr Pantoprazole Sodium (Protonix Inj) 40 mg IVP Q12H [facility] Last Admin: 12/21/16 01:59 Dose: 40 mg Pneumococcal Polyvalent Vaccine (Pneumovax 23 Vaccine) 0.5 ml IM .ONCE ONE Stop: 12/23/16 10:01 Rosuvastatin Calcium (Crestor) 5 mg PO HS [facility] Last Admin: 12/20/16 21:25 Dose: 5 mg - Labs Labs: 12/21/16 07:04 12/21/16 07:04 PT 11.3 SECONDS (9.7-12.2) 12/21/16 07:04 INR 1.0 12/21/16 07:04 APTT 34 SECONDS (21-34) 12/21/16 07:04 - Constitutional Appears: Well, Non-toxic, No Acute Distress - Head Exam Head Exam: ATRAUMATIC, NORMAL INSPECTION, NORMOCEPHALIC - Eye Exam Eye Exam: EOMI Pupil Exam: NORMAL ACCOMODATION - ENT Exam ENT Exam: Mucous Membranes Moist - Respiratory Exam Respiratory Exam: Clear to Ausculation Bilateral, NORMAL BREATHING PATTERN - Cardiovascular Exam Cardiovascular Exam: REGULAR RHYTHM - GI/Abdominal Exam GI & Abdominal Exam: Soft, Normal Bowel Sounds. 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 * EKG on admission showed Irregular rhythm at 77 bpm. HTN * Lasix 20 mg PO daily * Atenolol 25 mg PO daily CHF * Patient reports most recent ECHO shows pulmonary HTN and heart failure. * Patient follows with Dr. Tuttle * f/u 2D ECHO * Lasix 20 mg PO daily * Atenelol 25 mg Po daily Prophylactic measure * Protonix 40 IVP SC Q12H * Chemical anticoagulation contraindicated * SCDs contraindicated <Michael Randle - Last Filed: 12/21/16 21:34> Objective - Vital Signs/Intake and Output Vital Signs (last 24 hours): Temp Pulse Resp BP Pulse Ox 98.3 F 72 20 117/65 98 12/21/16 15:55 12/21/16 16:00 12/21/16 15:55 12/21/16 15:55 12/21/16 15:55 - Medications Medications: Current Medications Atenolol (Tenormin) 25 mg PO DAILY [facility] Last Admin: 12/21/16 10:08 Dose: 25 mg Furosemide (Lasix) 20 mg PO DAILY [facility] Last Admin: 12/21/16 12:58 Dose: 20 mg Ceftriaxone Sodium (Rocephin Iv 1 Gm Duplex) 50 mls @ 100 mls/hr IVPB DAILY [facility] Pantoprazole Sodium (Protonix Inj) 40 mg IVP Q12H [facility] Last Admin: 12/21/16 12:58 Dose: 40 mg Pneumococcal Polyvalent Vaccine (Pneumovax 23 Vaccine) 0.5 ml IM .ONCE ONE Stop: 12/23/16 10:01 Rosuvastatin Calcium (Crestor) 5 mg PO HS [facility] Last Admin: 12/20/16 21:25 Dose: 5 mg Saccharomyces Boulardii (Florastor) 250 mg PO BID [facility] Last Admin: 12/21/16 18:45 Dose: 250 mg - Labs Labs: 12/21/16 07:04 12/21/16 07:04 PT 11.3 SECONDS (9.7-12.2) 12/21/16 07:04 INR 1.0 12/21/16 07:04 APTT 34 SECONDS (21-34) 12/21/16 07:04 Attending/Attestation - Attestation I have personally seen and examined this patient.: Yes I have fully participated in the care of the patient.: Yes I have reviewed all pertinent clinical information, including history, physical exam and plan: Yes Notes (Text): 12/21/16 21:18 Patient was seen and examined at 12:30 PM 664 A 12/21/16. Exam, assessment and plan were thoroughly gone over with the resident. Also for ROS: C/O numbness in the dorsal aspect of the Right Big Toe S/P Hx of Laminectomy and is chronic in nature NO bowel movement since the black bowel movement that she had on 12/20/16 that prompted her to come to the ER Also for Assessment and Plan: 1). UTI Urine Culture 12/20/16 shows Gram Negative Rods Started patient on Rocephin 1 gm IV 1x/day Await sensitivities and switch to PO if possible 2). Hx HLD Crestor 5 mg PO 1x/day 3). Hx Overactive Bladder Patient chose not to take Myrbetriq due to HTN side effect Medicine Team: F/U CT Abdomen/Pelvis results F/U Pathology Report however I do not feel that the patient needs to be in the hospital for these results Once sensitivities for Urine Culture are known and if patient's Hgb/Hct continue to remain stable, then the patient should be discharged with plan to follow up EGD Pathology report through her PMD (in [place]) and with appropriate antibiotic for the UTI. Michael Randle D.O.
[2016-12-21] MEDS ORDERED: Propofol 10 mg/ml Inj (20 ML) ONE (10:50)
[2016-12-21] MEDS ORDERED: Lactated Ringer's 1,000 ML IV ONE (10:50)
[2016-12-21] MEDS ORDERED: Midazolam 2 MG/2 ML VIAL ONE (10:51)
[2016-12-21 13:00] VITALS: RESP 20
--- NOTE | 2016-12-21 18:23 | CT ---
PROCEDURE: CT Abdomen and Pelvis with contrast HISTORY: gastric mass, epigastric pain COMPARISON: None. TECHNIQUE: Contrast dose: 100 cc Visipaque 320 Radiation dose: Total exam DLP = 519.23 mGy-cm. This CT exam was performed using one or more of the following dose reduction techniques: Automated exposure control, adjustment of the mA and/or kV according to patient size, and/or use of iterative reconstruction technique. FINDINGS: LOWER THORAX: Unremarkable. LIVER: Hepatic steatosis. No focal masses. No intrahepatic bile duct dilatation or perihepatic ascites. GALLBLADDER AND BILE DUCTS: Cholelithiasis without CT evidence of acute cholecystitis. PANCREAS: Unremarkable. No gross lesion or ductal dilatation. SPLEEN: Unremarkable. ADRENALS: Unremarkable. No mass. KIDNEYS AND URETERS: Right kidney: Cortical scarring. Left kidney: Unremarkable. No hydronephrosis. No solid mass. VASCULATURE: Unremarkable. No aortic aneurysm. BOWEL: Absence of oral contrast precludes optimal assessment of the stomach, there is a history of gastric mass. Although it can be stated with certainty is that the stomach is decompressed, there is thickening of the wall of the distal stomach, there is no extension of tumor beyond the confines of the decompressed, collapsed stomach. The area of interest on orthogonal planes 4.6 x 3 x 3.3 cm APPENDIX: Normal appendix. PERITONEUM: Unremarkable. No free fluid. No free air. LYMPH NODES: Unremarkable. No enlarged lymph nodes. BLADDER: Unremarkable. REPRODUCTIVE: Unremarkable. BONES: No acute fracture. OTHER FINDINGS: None. IMPRESSION: Ill-defined mass affecting the distal stomach. Further characterization in the absence of oral contrast is not possible. Additional information provided above. Cholelithiasis without CT evidence of acute cholecystitis. Additional benign and/or incidental findings described above.
[2016-12-21] MEDS: Saccharomyces Boulardi 250 mg Cap PO SCH (18:45)
--- NOTE | 2016-12-21 22:18 | CP.PCM.PN ---
Subjective - Date & Time of Evaluation Date of Evaluation: 12/21/16 Time of Evaluation: 16:00 - Subjective Subjective: Patient seen and evaluated S/P EGD Gastric tumor Biopsy results pending Objective - Vital Signs/Intake and Output Vital Signs (last 24 hours): Temp Pulse Resp BP Pulse Ox 98.3 F 72 20 117/65 98 12/21/16 15:55 12/21/16 16:00 12/21/16 15:55 12/21/16 15:55 12/21/16 15:55 - Medications Medications: Current Medications Atenolol (Tenormin) 25 mg PO DAILY [facility] Last Admin: 12/21/16 10:08 Dose: 25 mg Furosemide (Lasix) 20 mg PO DAILY [facility] Last Admin: 12/21/16 12:58 Dose: 20 mg Ceftriaxone Sodium (Rocephin Iv 1 Gm Duplex) 50 mls @ 100 mls/hr IVPB DAILY [facility] Pantoprazole Sodium (Protonix Inj) 40 mg IVP Q12H [facility] Last Admin: 12/21/16 12:58 Dose: 40 mg Pneumococcal Polyvalent Vaccine (Pneumovax 23 Vaccine) 0.5 ml IM .ONCE ONE Stop: 12/23/16 10:01 Rosuvastatin Calcium (Crestor) 5 mg PO HS [facility] Last Admin: 12/21/16 21:46 Dose: 5 mg Saccharomyces Boulardii (Florastor) 250 mg PO BID [facility] Last Admin: 12/21/16 18:45 Dose: 250 mg - Labs Labs: 12/21/16 07:04 12/21/16 07:04 PT 11.3 SECONDS (9.7-12.2) 12/21/16 07:04 INR 1.0 12/21/16 07:04 APTT 34 SECONDS (21-34) 12/21/16 07:04
[2016-12-21 23:16] VITALS: PULSE 68
--- NOTE | 2016-12-22 06:58 | CP.PCM.PN ---
Subjective - Date & Time of Evaluation Date of Evaluation: 12/22/16 Time of Evaluation: 06:55 Objective - Vital Signs/Intake and Output Vital Signs (last 24 hours): Temp Pulse Resp BP Pulse Ox 97.7 F 68 20 119/74 96 12/21/16 23:15 12/21/16 23:15 12/21/16 23:15 12/21/16 23:15 12/21/16 23:15 Intake and Output: 12/21/16 12/22/16 18:59 06:59 Intake Total 480 Balance 480 - Medications Medications: Current Medications Atenolol (Tenormin) 25 mg PO DAILY [facility] Last Admin: 12/21/16 10:08 Dose: 25 mg Furosemide (Lasix) 20 mg PO DAILY [facility] Last Admin: 12/21/16 12:58 Dose: 20 mg Ceftriaxone Sodium (Rocephin Iv 1 Gm Duplex) 50 mls @ 100 mls/hr IVPB DAILY [facility] Pantoprazole Sodium (Protonix Inj) 40 mg IVP Q12H [facility] Last Admin: 12/22/16 06:30 Dose: Not Given Pneumococcal Polyvalent Vaccine (Pneumovax 23 Vaccine) 0.5 ml IM .ONCE ONE Stop: 12/23/16 10:01 Rosuvastatin Calcium (Crestor) 5 mg PO HS [facility] Last Admin: 12/21/16 21:46 Dose: 5 mg Saccharomyces Boulardii (Florastor) 250 mg PO BID [facility] Last Admin: 12/21/16 18:45 Dose: 250 mg - Labs Labs: 12/21/16 07:04 12/21/16 07:04 PT 11.3 SECONDS (9.7-12.2) 12/21/16 07:04 INR 1.0 12/21/16 07:04 APTT 34 SECONDS (21-34) 12/21/16 07:04 Assessment and Plan - Assessment and Plan (Free Text) Assessment: Gastric Tumor * EGD showed tumor in the gastric antrum * CT - ill defined mass in the distal stomach * F/U Path GI Bleed * GI (Guille) * positive stool OB and melena * Protonix 40 mg IVP Q12H * No current bleeding UTI * UC - Gram negative rods * Rocephin 1gm IV QD History of peptic ulcer disease * Protonix 40 mg IVP Q12H Atrial fibrillation * Patient refuses anticoagulation due to history of GI bleed. * EKG on admission showed Irregular rhythm at 77 bpm. HTN * Lasix 20 mg PO daily * Atenolol 25 mg PO daily HLD * Crestor 5mg PO QD CHF * Patient reports most recent ECHO shows pulmonary HTN and heart failure. * Patient follows with Dr. Tuttle * f/u 2D ECHO * Lasix 20 mg PO daily * Atenelol 25 mg Po daily Prophylactic measure * Protonix 40 IVP SC Q12H * Chemical anticoagulation contraindicated * SCDs contraindicated
--- NOTE | 2016-12-22 07:45 | CARD ---
APPROVED REPORT EXAM: Two-dimensional and M-mode echocardiogram with Doppler and color Doppler. Other Information Quality : GoodRhythm : NSR INDICATION Atrial Fibrillation Congestive Heart Failure RISK FACTORS Hypertension M-Mode DIMENSIONS RVDd1.56 (2.1-3.2cm)Left Atrium (MM)3.94 (2.5-4.0cm) IVSd0.70 (0.7-1.1cm)Aortic Root2.69 (2.2-3.7cm) LVDd5.27 (4.0-5.6cm)Aortic Cusp Exc.1.48 (1.5-2.0cm) PWd0.82 (0.7-1.1cm)FS (%) 26 % LVDs3.90 (2.0-3.8cm)LVEF (%)51 (>50%) Aortic Valve AoV Peak Jizduhsf921.3cm/Emmanuel Peak GR.11mmHgAI P 1/2 [id number] Mitral Valve MV E Qhsdjpul223.4cm/sMV A Khssbbnn29.4cm/sE/A ratio2.6 TDI E/Lateral E'0.0E/Medial E'0.0 Tricuspid Valve TR Peak Juyzuvbw464jp/sTR Peak Gr.52kmQgLJLJ98vdNs LEFT VENTRICLE The left ventricle is normal size. There is normal left ventricular wall thickness. Left ventricle systolic function is normal. The Ejection Fraction is 50-55%. There is normal LV segmental wall motion. The left ventricular diastolic function is normal. RIGHT VENTRICLE The right ventricle is normal size. There is normal right ventricular wall thickness. The right ventricular systolic function is normal. ATRIA The left atrium size is normal. The right atrium size is normal. The interatrial septum is intact with no evidence for an atrial septal defect. AORTIC VALVE The aortic valve is normal in structure. There is mild aortic regurgitation. There is no aortic valvular stenosis. MITRAL VALVE The mitral valve is normal in structure. There is no mitral valve stenosis. Mitral regurgitation is mild. TRICUSPID VALVE The tricuspid valve is normal in structure. There is moderate tricuspid regurgitation. Right ventricular systolic pressure is estimated at greater than 60 mmHg. There is severe pulmonary hypertension. PULMONIC VALVE The pulmonic valve is not well visualized. There is mild pulmonic valvular regurgitation. GREAT VESSELS The aortic root is normal in size. PERICARDIAL EFFUSION There is no significant pericardial effusion. <Conclusion> Left ventricle systolic function is normal. The Ejection Fraction is 50-55%. There is mild aortic regurgitation. Mitral regurgitation is mild. There is moderate tricuspid regurgitation. There is severe pulmonary hypertension. There is mild pulmonic valvular regurgitation.
[2016-12-22 08:09] VITALS: TEMP 97.8; O2SAT 95
--- NOTE | 2016-12-22 09:32 | CP.PCM.PN ---
<PARMINDER FARR - Last Filed: 12/22/16 10:00> Subjective - Date & Time of Evaluation Date of Evaluation: 12/22/16 Time of Evaluation: 07:35 - Subjective Subjective: Parminder Farr DO PGY1 - GI Progress Note for Dr. Han Patient seen and examined at bedside. No events overnight. Patient is s/p EGD which showed nonbleeding ulcer and gastric mass, of which biopsies were taken for histological diagnosis. Patient today denies abdominal pain, and reports a normal appetite, requesting us to advance her diet. She also denies N/V, diarrhea, constipation, hematochezia. She does report dark stools, but "less than before." 12 point ROS obtained, and negative, except as above. Objective - Vital Signs/Intake and Output Vital Signs (last 24 hours): Temp Pulse Resp BP Pulse Ox 97.8 F 68 20 145/73 95 12/22/16 08:08 12/22/16 08:08 12/22/16 08:08 12/22/16 08:08 12/22/16 08:08 Intake and Output: 12/22/16 12/22/16 06:59 18:59 Intake Total 480 Balance 480 - Medications Medications: Current Medications Atenolol (Tenormin) 25 mg PO DAILY [facility] Last Admin: 12/21/16 10:08 Dose: 25 mg Furosemide (Lasix) 20 mg PO DAILY [facility] Last Admin: 12/21/16 12:58 Dose: 20 mg Ceftriaxone Sodium (Rocephin Iv 1 Gm Duplex) 50 mls @ 100 mls/hr IVPB DAILY [facility] Pantoprazole Sodium (Protonix Inj) 40 mg IVP Q12H [facility] Last Admin: 12/22/16 06:30 Dose: Not Given Pneumococcal Polyvalent Vaccine (Pneumovax 23 Vaccine) 0.5 ml IM .ONCE ONE Stop: 12/23/16 10:01 Rosuvastatin Calcium (Crestor) 5 mg PO HS [facility] Last Admin: 12/21/16 21:46 Dose: 5 mg Saccharomyces Boulardii (Florastor) 250 mg PO BID [facility] Last Admin: 12/21/16 18:45 Dose: 250 mg - Labs Labs: 12/21/16 07:04 12/21/16 07:04 PT 11.3 SECONDS (9.7-12.2) 12/21/16 07:04 INR 1.0 12/21/16 07:04 APTT 34 SECONDS (21-34) 12/21/16 07:04 - Constitutional Appears: Non-toxic, No Acute Distress - Head Exam Head Exam: ATRAUMATIC, NORMOCEPHALIC - Eye Exam Eye Exam: EOMI, Normal appearance - ENT Exam ENT Exam: Mucous Membranes Moist - Neck Exam Neck Exam: Full ROM, Normal Inspection - Respiratory Exam Respiratory Exam: Clear to Ausculation Bilateral. absent: Rales, Rhonchi, Wheezes - Cardiovascular Exam Cardiovascular Exam: Irregular Rhythm, +S1, +S2 - GI/Abdominal Exam GI & Abdominal Exam: Soft, Normal Bowel Sounds. absent: Distended, Firm, Guarding, Rigid, Tenderness, Mass, Organomegaly, Rebound - Extremities Exam Extremities Exam: absent: Calf Tenderness, Pedal Edema - Neurological Exam Neurological Exam: Alert, Awake, Oriented x3 - Psychiatric Exam Psychiatric exam: Normal Affect, Normal Mood - Skin Skin Exam: Dry, Intact Assessment and Plan - Assessment and Plan (Free Text) Assessment: 76 year old female with history of Hypertension, CKD, Atrial fibrillation, Upper GI bleed 2/2 PUD 2010 presenting with epigastric pain and endorsed black stool after accidental increased dose of Nattokinase OTC for Afib. Active treatment of epigastric pain with documented melena on ER presentation with concern for Upper GI bleed. Last EGD 12/2014 in [facility] showing an antral lesser curvature clean based ulcer. Prior colonoscopy 2009 endorsed to be normal. Plan: 1. Melena - Patient is s/p EGD which showed antral ulcer with multilobular mass vs edematous soft tissue; no active bleeding or stigmata of recent bleeding - Biopsies taken; pathology reports pending - H. pylori pending - CT A/P with IV contrast shows no extension of hte mass outside of the stomach , and no LAD; no other masses - Recommend outpatient EUS to further characterize gastric mass - Patient reports continued dark stools; possibly residual melena after accidental overdose on nattokinase, which may have precipitated a bleed - Rectal exam prior to EGD showed brown stool in rectal vault - H/H remains stable - Will advance diet as tolerated - Patient should continue PPI BID, and should be discharged on the same - Patient should follow up in 1-2 weeks for follow up EUS, with us, or with her own physician in [place] if she is unable to follow up with us. 2. Abdominal pain 2/2 PUD - Patient has history of PUD; last EGD in 12/2014 showing an antral lesser curvature clean based ulcer. - Currently denies any abdominal pain, heartburn, dyspepsia; tolerating diet; reports normal appetite - Continue PPI, as above 3. Afib - Currently rate controlled - Takes OTC nattokinase for anticoagulation at home - Cardiology following, appreciate recs Patient seen, discussed, and reviewed with attending <Maycol Han - Last Filed: 12/22/16 14:04> Objective - Vital Signs/Intake and Output Vital Signs (last 24 hours): Temp Pulse Resp BP Pulse Ox 97.8 F 68 20 135/76 95 12/22/16 08:08 12/22/16 08:08 12/22/16 08:08 12/22/16 09:42 12/22/16 08:08 Intake and Output: 12/22/16 12/22/16 06:59 18:59 Intake Total 480 Balance 480 - Labs Labs: 12/21/16 07:04 12/21/16 07:04 PT 11.3 SECONDS (9.7-12.2) 12/21/16 07:04 INR 1.0 12/21/16 07:04 APTT 34 SECONDS (21-34) 12/21/16 07:04 Attending/Attestation - Attestation I have personally seen and examined this patient.: Yes I have fully participated in the care of the patient.: Yes I have reviewed all pertinent clinical information, including history, physical exam and plan: Yes Notes (Text): 12/22/16 14:01 I have seen and examined patient with GI fellow and medical services manager. No acute events overnight, she is seen resting comfortably at bedside. She denies abdominal pain, nausea, vomiting, fever/chills. Tolerating PO liquids without difficulty. No bowel movements over past 24 hours. Atrial fibrillation on herbal therapy Anemia Melena, s/p EGD showing gastric ulcer with questionable mass lesion - H/H stable, continue to monitor, no recurrent bleeding noted - Advance diet as tolerated - Awaiting biopsy results from EGD - Given appearance of lesion beneath ulcer bed, suggest she undergo elective outpatient EUS for further evaluation. Office contact information for Dr. Olivera provided to patient. - Follow up cardiology recommendations regarding anti-coagulation
[2016-12-22] MEDS: Saccharomyces Boulardi 250 mg Cap PO SCH (09:43)
[2016-12-22 09:44] VITALS: BP 135/76
[2016-12-22] MEDS ORDERED: cefTRIAXone IV 1 gm in Dextros 50 ML IVPB SCH (10:00)
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
[2016-12-22] MEDS ORDERED: Pneumococcal 23-Valent Vaccine IM ONE (11:39)
[2016-12-23] MEDS ORDERED: Pneumococcal 23-Valent Vaccine IM ONE (10:00)
--- NOTE | 2016-12-25 21:56 | CARD ---
APPROVED REPORT EKG Measurement Heart [id number] <Conclusion> Atrial fibrillation Abnormal ECG
== END 2016-12-22 13:05 | disposition home or self-care (01) | DRG 374 ==
LOC: C.ER 11:20 → C.9E 13:46 → C.6T 16:13
PROVIDERS: ADMIT Family Medicine; ATTEND Family Medicine
PROC: 0DB98ZX Excision of Duodenum, Via Natural or Artificial Opening Endoscopic, Diagnostic (ICD-10-PCS; 2016-12-21)
PROC: 0DB68ZX Excision of Stomach, Via Natural or Artificial Opening Endoscopic, Diagnostic (ICD-10-PCS; principal; 2016-12-21 10:50)
DX: D49.0 Neoplasm of unspecified behavior of digestive system (principal); K25.4 Chronic or unspecified gastric ulcer with hemorrhage; N39.0 Urinary tract infection, site not specified; I48.91 Unspecified atrial fibrillation; I13.0 Hypertensive heart and chronic kidney disease with heart failure and stage 1 through stage 4 chronic kidney disease, or unspecified chronic kidney disease; I50.32 Chronic diastolic (congestive) heart failure; K29.50 Unspecified chronic gastritis without bleeding; D64.9 Anemia, unspecified; N18.3 Chronic kidney disease, stage 3 (moderate); B96.20 Unspecified Escherichia coli [E. coli] as the cause of diseases classified elsewhere; N32.81 Overactive bladder; I27.20 Pulmonary hypertension, unspecified; E78.5 Hyperlipidemia, unspecified; K31.9 Disease of stomach and duodenum, unspecified; M21.612 Bunion of left foot; K80.20 Calculus of gallbladder without cholecystitis without obstruction; Z96.652 Presence of left artificial knee joint; Z87.11 Personal history of peptic ulcer disease; Z79.899 Other long term (current) drug therapy; Z80.0 Family history of malignant neoplasm of digestive organs